=== PATIENT | female | born 1980 | race Caucasian/White ===

== ENCOUNTER → 2017-12-20 15:50 | Outpatient (CLI) | payer OTHER, SELFPAY ==
--- NOTE | 2017-12-20 15:50 | POL_PTH ---
PATIENT: LOBITO VILLAFUERTE LOC: [facility] U#:[id number] AGE/SX: 45/F ROOM: RE12/20/[address]: Dr. Rodney Santiago MD : [id number] BED: DIS: SPEC #: [id number] RECD: 12/21/17 12:00 STATUS: EDUARDO ANUJ #: [id number] LUPE: 12/20/17 15:[address]: Rodney Santiago DEPT: SURGICAL PATHOLOGY RECD BY: Heavenly Steele ENTERED: 12/22/17 07:53 SP TYPE: Polyp OTHR DR: SURINDER Skinner Tissues: Uterine cervix, NOS Procedures: Surgery Specimen Level IV HEADER OPERATION: Cervical polyp removal PRE-OP DIAGNOSIS: N84.1 TISSUE SUBMITTED: Cervical polyp MICROSCOPIC DIAGNOSIS Cervical polyp, biopsy: Benign ecto- and endocervical polyp with squamous metaplasia. SJ:sawyer 12/22/17 MICROSCOPIC DESCRIPTION Slides are reviewed. GROSS DESCRIPTION Received in fixative is one container labeled with the patient's name and designated cervical polyp. The specimen consists of a piece of pink congested polyp measuring 1.5 x 1 x 0.4 cm. The specimen is totally submitted in one cassette. / SJ:sawyer 12/21/17 TC:5 CPT: 00823
== END ==
PROVIDERS: Family Provider Physician Assistant; PCP Physician Assistant; Visit Provider Obstetrics & Gynecology
DX: N84.1 Polyp of cervix uteri (principal)
CPT/HCPCS: 88305

== ENCOUNTER → 2024-06-06 | Outpatient (CLI) | payer OTHER, SELFPAY ==
--- NOTE | 2024-06-06 15:36 | NEURO ---
NCS and/or EMG Patient Report Ordering Doctor: Camila Velázquez DATE OF SERVICE: 06/06/24 Ivory presents for electrodiagnostic testing of the upper limbs. She reports numbness and tingling in both hands as well as weakness in the right arm. She has a history of neck pain. Electrodiagnostic findings: Right median motor nerve demonstrates prolonged latency with normal amplitude and conduction velocity. Left median motor nerve demonstrates prolonged distal latency with normal amplitude and conduction velocity. Ulnar motor response within normal limits bilaterally. Normal median ulnar F?waves. Prolonged median sensory latency at the wrist bilaterally normal ulnar and radial sensory responses. Needle EMG testing was performed the upper limbs. 1+ fibrillations were noted in the right lower cervical paraspinals, right pronator teres, right triceps and right flexor carpi ulnaris. Motor unit action potentials were normal amplitude and duration Electrodiagnostic impression: This is an abnormal study in the upper limbs 1. Electrodiagnostic findings suggestive of bilateral median mononeuropathy. This is consistent with a moderate to advanced bilateral carpal tunnel syndrome. 2. Electrodiagnostic findings are consistent with acute right C7 radiculopathy. Consider correlation with cervical spine imaging. Multi Select Codes Neurology Neurology Interp Codes: 67243-16 Musc test done w/n test comp (interp) (2) and 21559-22 Nrv cndj test 11-12 studies (interp)
== END | disposition home or self-care (01) ==
LOC: PSN 13:38
PROVIDERS: PCP Physician Assistant; Referring Provider Physician Assistant; Visit Provider Physician Assistant
DX: G56.03 Carpal tunnel syndrome, bilateral upper limbs (principal)
CPT/HCPCS: 95886; 95911